=== PATIENT | female | born 1950 | race Caucasian/White ===

== ENCOUNTER → 2016-11-18 | Outpatient (REF) | payer MEDICARE ==
[~2016-11-18] MED LIST: /WARF5TA; ACET65TA; ASPI81TA83; CELE20TA; CELEXA20 PO; HCTZ25 PO; HYDR25TA6; LIPITOR20 PO; LOPR50TA; LOPRESS50 PO; PLAV75TA2; PLAVIX75 PO; SIMV20TA2
[2016-11-18 16:31] LABS: INR 1.09
== END ==
LOC: M SFHCCLAY 10:14
PROVIDERS: ATTEND Family Medicine
DX: Z51.81 Encounter for therapeutic drug level monitoring (principal); Z79.01 Long term (current) use of anticoagulants

== ENCOUNTER → 2016-11-25 | Outpatient (REF) | payer MEDICARE ==
[2016-11-25 11:16] LABS: INR 1.6
== END ==
LOC: M SFHCCLAY 07:23
PROVIDERS: ATTEND Family Medicine
DX: Z51.81 Encounter for therapeutic drug level monitoring (principal); Z79.01 Long term (current) use of anticoagulants

== ENCOUNTER → 2016-12-02 | Outpatient (REF) | payer MEDICARE ==
[2016-12-02 11:52] LABS: INR 1.66
== END ==
LOC: M SFHCCLAY 07:28
PROVIDERS: ATTEND Family Medicine
DX: Z51.81 Encounter for therapeutic drug level monitoring (principal); Z79.01 Long term (current) use of anticoagulants

== ENCOUNTER → 2016-12-09 | Outpatient (REF) | payer MEDICARE ==
[2016-12-09 11:40] LABS: INR 1.96
== END ==
LOC: M SFHCCLAY 07:29
PROVIDERS: ATTEND Family Medicine
DX: Z51.81 Encounter for therapeutic drug level monitoring (principal); Z79.01 Long term (current) use of anticoagulants

== ENCOUNTER → 2016-12-23 | Outpatient (REF) | payer MEDICARE ==
[2016-12-23 11:53] LABS: INR 1.17
== END ==
LOC: M SFHCCLAY 07:46
PROVIDERS: ATTEND Family Medicine
DX: Z79.01 Long term (current) use of anticoagulants (principal)

== ENCOUNTER → 2016-12-30 | Outpatient (REF) | payer MEDICARE ==
[2016-12-30 11:39] LABS: INR 1.64
== END ==
LOC: M SFHCCLAY 08:17
PROVIDERS: ATTEND Family Medicine
DX: Z79.01 Long term (current) use of anticoagulants (principal)

== ENCOUNTER → 2017-01-06 | Outpatient (REF) | payer MEDICARE ==
[2017-01-06 11:47] LABS: INR 2.18
== END ==
LOC: M SFHCCLAY 07:45
PROVIDERS: ATTEND Family Medicine
DX: Z79.01 Long term (current) use of anticoagulants (principal)

== ENCOUNTER → 2017-01-13 | Outpatient (REF) | payer MEDICARE ==
[2017-01-13 11:58] LABS: INR 3.73
== END ==
LOC: M SFHCCLAY 07:38
PROVIDERS: ATTEND Family Medicine
DX: Z79.01 Long term (current) use of anticoagulants (principal)

== ENCOUNTER → 2017-01-27 | Outpatient (REF) | payer MEDICARE ==
[2017-01-27 11:41] LABS: INR 2.32
== END ==
LOC: M SFHCCLAY 08:00
PROVIDERS: ATTEND Family Medicine
DX: Z79.01 Long term (current) use of anticoagulants (principal)

== ENCOUNTER → 2017-02-10 | Outpatient (REF) | payer MEDICARE ==
[2017-02-10 12:40] LABS: INR 2.25
== END ==
LOC: M SFHCCLAY 07:36
PROVIDERS: ATTEND Family Medicine
DX: Z79.01 Long term (current) use of anticoagulants (principal)

== ENCOUNTER → 2017-02-17 | Outpatient (CLI) | payer MEDICARE ==
--- NOTE | 2017-02-17 22:39 | ECHO ---
DATE OF PROCEDURE: 02/17/2017 REFERRING PHYSICIAN: Benny Bernal MD INDICATION: Atrial fibrillation. HEIGHT: 62 inches WEIGHT: 207 pounds MEASUREMENTS: Left atrium: 4.3 cm Aortic root: 3.7 cm Ventricular septum: 1.28 cm Posterior wall: 1.29 cm Left ventricle diastole: 4.2 cm Aortic valve annulus: 2.3 cm Inferior vena cava: 1.5 cm DOPPLER MEASUREMENTS: Very mild aortic regurgitation. Very mild aortic stenosis. Peak aortic valve gradient: 16 mmHg Mean aortic valve gradient: 10 mmHg Aortic valve velocity: 201 cm/s LVOT velocity: 111 cm/s LVOT VTI: 28.2 cm Very mild mitral regurgitation. No mitral stenosis. Mitral E velocity: 85.4 cm/s Mitral A velocity: 101 cm/s Mitral deceleration time: 210 ms Very mild tricuspid regurgitation. Estimated right ventricle systolic pressure 28 mmHg assuming a right atrial pressure of 5 mmHg. MITRAL ANNULAR TISSUE DOPPLER: E prime septal: 6.6 cm/s E prime lateral: 5.9 cm/s DESCRIPTION: Rhythm was sinus. This is a moderately technically difficult echocardiogram. No pericardial effusion. This is a 2D, M-mode, color flow Doppler and pulse wave Doppler examination that included mitral annular tissue Doppler. CONCLUSIONS: 1. Mild concentric left ventricle hypertrophy. No regional wall motion abnormalities of the left ventricle. Normal left ventricle (LV) systolic function. Left ventricular ejection fraction (LVEF) 65% by visual estimate. Grade 1 LV diastolic dysfunction. 2. Moderate focal thickening and focal cusp calcific deposits of a three-cuspid aortic valve. Mild reduction in cusp mobility. Very mild aortic stenosis. Very mild aortic regurgitation. 3. Moderate mitral annular calcification. No mitral stenosis. Very mild mitral regurgitation. 4. Mild left atrial dilation.
== END ==
LOC: M CARPUL 08:02
PROVIDERS: ATTEND Family Medicine
DX: I48.91 Unspecified atrial fibrillation (principal)

== ENCOUNTER → 2017-03-10 | Outpatient (REF) | payer MEDICARE ==
[2017-03-10 12:04] LABS: INR 2.78
== END ==
LOC: M SFHCCLAY 07:27
PROVIDERS: ATTEND Family Medicine
DX: Z79.01 Long term (current) use of anticoagulants (principal)

== ENCOUNTER → 2017-04-07 | Outpatient (REF) | payer MEDICARE ==
[2017-04-07 11:21] LABS: INR 1.36
== END ==
LOC: M SFHCCLAY 07:30
PROVIDERS: ATTEND Family Medicine
DX: Z79.01 Long term (current) use of anticoagulants (principal)

== ENCOUNTER → 2017-04-14 | Outpatient (REF) | payer MEDICARE ==
[2017-04-14 12:43] LABS: INR 1.79
== END ==
LOC: M SFHCCLAY 07:42
PROVIDERS: ATTEND Family Medicine
DX: Z79.01 Long term (current) use of anticoagulants (principal)

== ENCOUNTER → 2017-04-21 | Outpatient (REF) | payer MEDICARE ==
[2017-04-21 11:35] LABS: INR 2.97
== END ==
LOC: M SFHCCLAY 07:35
PROVIDERS: ATTEND Family Medicine
DX: Z79.01 Long term (current) use of anticoagulants (principal)

== ENCOUNTER → 2017-04-28 | Outpatient (REF) | payer MEDICARE ==
[2017-04-28 12:10] LABS: INR 2.99
== END ==
LOC: M SFHCCLAY 07:32
PROVIDERS: ATTEND Family Medicine
DX: Z79.01 Long term (current) use of anticoagulants (principal)

== ENCOUNTER → 2017-05-12 | Outpatient (CLI) | payer MEDICARE ==
--- NOTE | 2017-05-12 14:42 | REPMRS ---
Patient History The patient states she has not had a clinical breast exam in over a year. Digital Mammo Screening Bilat: May 12, 2017 - Exam #: [id number] Bilateral CC and MLO view(s) were taken. Technologist: Hansa Crawford, Technologist Prior study comparison: April 08, 2016, bilateral digital mammo screening bilat performed at [facility]. March 08, 2015, bilateral digital mammo screening bilat performed at [facility]. January 08, 2014, bilateral digital mammo screening bilat performed at [facility]. FINDINGS: The breast tissue is heterogeneously dense. This may lower the sensitivity of mammography. There is a moderate amount of heterogeneously dense fibroglandular tissue which is fairly symmetric. There is no interval development of dominant mass, architectural distortion, or clustered microcalcification typical of malignancy. There has been no change in the appearance of the mammogram from the prior studies. ASSESSMENT: BI-RADS/ACR category 1 mammogram. Negative. Recommendation Routine screening mammogram of both breasts in 1 year (for women over age 40). This mammogram was interpreted with the aid of an FDA-approved computer-aided dectection system. Electronically Signed By: Serge Keller MD 05/12/17 [id number]
== END ==
LOC: M RAD 13:03
PROVIDERS: ATTEND Family Medicine
DX: Z12.31 Encounter for screening mammogram for malignant neoplasm of breast (principal); Z51.81 Encounter for therapeutic drug level monitoring; Z79.01 Long term (current) use of anticoagulants
CPT/HCPCS: 85610; G0202

== ENCOUNTER → 2017-05-12 | Outpatient (REF) | payer MEDICARE ==
[2017-05-12 12:01] LABS: INR 3.45
== END ==
LOC: M SFHCCLAY 08:05
PROVIDERS: ATTEND Family Medicine
DX: Z79.01 Long term (current) use of anticoagulants (principal)

== ENCOUNTER → 2017-05-26 | Outpatient (REF) | payer MEDICARE ==
[~2017-05-26] MED LIST changes: +ACET1TAB16 PO; +ALBU17IN INH; +ASPI1TAB PO; +BISO5TAB5 PO; +CETACRE4 TOP; +CETI10TA PO; +CITA40TA4 PO; +COUM10TA PO; +COUM1TAB17 PO; +DICY10CA13 PO; +DRIS50002 PO; +HYDR2.5C54 TOP; +MONT10TA2 PO; +PLAV1TAB2 PO; +SALI0.6523; +WARF4TAB52 PO; +ZOCO40TA PO
[2017-05-26 11:49] LABS: INR 1.78
== END ==
LOC: M SFHCCLAY 07:25
PROVIDERS: ATTEND Family Medicine
DX: Z51.81 Encounter for therapeutic drug level monitoring (principal); Z79.01 Long term (current) use of anticoagulants
CPT/HCPCS: 85610; G0463

== ENCOUNTER → 2017-06-09 | Outpatient (REF) | payer MEDICARE ==
[2017-06-09 12:14] LABS: BASO # 0.2 K/mm3 (0.0-0.2); BASO % 1.9 % (0.0-1.0); EOS # 0.5 K/mm3 (0.0-0.50); EOS % 6.1 % (0.0-3.0); LARGE UNSTAINED CELL # 0.2 K/mm3 (0.0-0.4); LARGE UNSTAINED CELL % 2.3 % (0.0-4.0); LYMPH # 1.8 K/mm3 (1.5-4.5); LYMPH % 20.4 % (24.0-44.0); MEAN CORPUSCULAR HEMOGLOBIN 27.1 pg (27.0-33.0); MEAN CORPUSCULAR HGB CONC 33.6 g/dl (32.0-36.5); MEAN CORPUSCULAR VOLUME 80.5 fl (80.0-96.0); MONO # 0.5 K/mm3 (0.0-0.8); MONO % 6.6 % (0.0-5.0); NEUTROPHILS % 62.7 % (36.0-66.0); PLATELET COUNT, AUTOMATED 510 k/mm3 (150-450); RED CELL DISTRIBUTION WIDTH 15.9 % (11.5-14.5)
[2017-06-09 12:20] LABS: INR 2.24
[2017-06-09 12:30] LABS: ALKALINE PHOSPHATASE 41 U/L (45-117); ALT/SGPT 22 U/L (12-78); ANION GAP 8 MEQ/L (8-16); AST/SGOT 15 U/L (15-37); BILIRUBIN,TOTAL 0.4 MG/DL (0.2-1.0); BLOOD UREA NITROGEN 29 MG/DL (7-18); CALCIUM LEVEL 8.6 MG/DL (8.8-10.2); CARBON DIOXIDE LEVEL 24 MEQ/L (21-32); CHLORIDE LEVEL 108 MEQ/L (98-107); CHOLESTEROL LEVEL 172 MG/DL (<200); CREATININE FOR GFR 0.62 MG/DL (0.55-1.02); GLOMERULAR FILTRATION RATE > 60.0 (>45); GLUCOSE, FASTING 120 MG/DL (80-110); POTASSIUM SERUM 3.9 MEQ/L (3.5-5.1); SODIUM LEVEL 140 MEQ/L (136-145); TOTAL PROTEIN 6.5 GM/DL (6.4-8.2); TRIGLYCERIDES LEVEL 122 MG/DL (<150)
== END ==
LOC: M SFHCCLAY 07:00
PROVIDERS: ATTEND Family Medicine
DX: I48.91 Unspecified atrial fibrillation (principal); I63.40 Cerebral infarction due to embolism of unspecified cerebral artery; R10.11 Right upper quadrant pain; Z79.01 Long term (current) use of anticoagulants

== ENCOUNTER → 2017-06-15 | Outpatient (CLI) | payer MEDICARE ==
--- NOTE | 2017-06-15 11:49 | REP ---
BILIARY SCAN WITH GALLBLADDER EJECTION FRACTION: 06/15/2017 COMPARISON: Gallbladder ultrasound 08/17/2016. CLINICAL HISTORY: Right upper quadrant abdominal pain. FINDINGS: The patient received 6.3 mCi technetium 99m mebrofenin via an IV and the s Sequential 5-minute images for 1 hour anteriorly. Thereafter 8 ounces of Ensure Enlive was consumed beginning 65 minutes post tracer injection and there after 60 minutes of dynamic imaging performed with 2-minute intervals. The region of interest drawn around the gallbladder and gallbladder ejection fraction calculated by a semiautomated method. Homogeneous tracer distribution about the liver and prompt appearance of activity in the gallbladder fossa first seen at 15 minutes and the duodenum by 25 minutes and the small bowel and jejunum by 30 minutes. Good washout of activity from the liver and progressive filling of activity in the gallbladder noted. The gallbladder ejection fraction at 60 minutes is 67%. Using this method, normal gallbladder ejection fraction is greater than 35%. IMPRESSION: 1. Prompt homogeneous tracer uptake with biliary to bowel transit without obstruction and prompt appearance of activity in both the gallbladder fossa and the duodenum. Good washout from the liver. 2. Gallbladder ejection fraction 67% at 1 hour is normal. Signed by Vitor Galindo MD 06/15/2017 06:59 P
== END ==
LOC: M RAD 07:41
PROVIDERS: ATTEND Family Medicine
DX: R10.11 Right upper quadrant pain (principal)
CPT/HCPCS: 78227; A9537; J2805

== ENCOUNTER → 2017-06-23 | Outpatient (REF) | payer MEDICARE ==
[2017-06-23 12:08] LABS: INR 1.63
== END ==
LOC: M SFHCCLAY 07:20
PROVIDERS: ATTEND Family Medicine
DX: Z79.01 Long term (current) use of anticoagulants (principal)

== ENCOUNTER → 2017-06-30 | Outpatient (REF) | payer MEDICARE ==
[2017-06-30 12:04] LABS: INR 2.31
== END ==
LOC: M SFHCCLAY 07:26
PROVIDERS: ATTEND Family Medicine
DX: Z79.01 Long term (current) use of anticoagulants (principal)

== ENCOUNTER 2017-07-10 10:17 | Emergency (ER) | payer MEDICARE ==
[~2017-07-10] VITALS: Ht 157.5 cm; Wt 95.9 kg
[~2017-07-10 10:17] MED LIST changes: -ACET1TAB16 PO; -ALBU17IN INH; -ASPI1TAB PO; -BISO5TAB5 PO; -CETACRE4 TOP; -CETI10TA PO; -CITA40TA4 PO; -COUM10TA PO; -COUM1TAB17 PO; -DICY10CA13 PO; -DRIS50002 PO; -HYDR2.5C54 TOP; -MONT10TA2 PO; -PLAV1TAB2 PO; -SALI0.6523; -WARF4TAB52 PO; -ZOCO40TA PO
[2017-07-10] MEDS ORDERED: PLAV1TAB2 PO (10:30)
[2017-07-10] MEDS ORDERED: BISO5TAB5 PO (10:30)
[2017-07-10] MEDS ORDERED: DICY10CA13 PO (10:30)
[2017-07-10] MEDS ORDERED: MONT10TA2 PO (10:30)
[2017-07-10] MEDS ORDERED: CETI10TA PO (10:30)
[2017-07-10] MEDS ORDERED: ACET1TAB16 PO (10:30)
[2017-07-10] MEDS ORDERED: ALBU17IN INH (10:30)
[2017-07-10] MEDS ORDERED: PERCOCET 5MG/325MG TAB PO ONE (11:00)
--- NOTE | 2017-07-10 11:54 | REP ---
LEFT KNEE, FOUR VIEWS: HISTORY: Trauma. There is no acute fracture or dislocation. There is marked narrowing of the joint spaces. Osteophytes are present on the femur, tibia and patella. An ossified density is present adjacent to the medial tibial plateau. This represents ligamentous or tendon calcification or an old avulsion fracture fragment. A suprapatellar joint effusion is present. IMPRESSION: Degenerative change as described above. Signed by Adonis Rivas MD 07/10/2017 12:10 P
--- NOTE | 2017-07-10 12:15 | REP ---
UNILATERAL LEFT LOWER EXTREMITY DUPLEX VEINS: HISTORY: Left leg pain. There are no filling defects in the deep venous system. The deep venous system is patent. IMPRESSION: There is no deep venous thrombosis. Signed by Adonis Rivas MD 07/10/2017 12:26 P
[2017-07-10 12:59] VITALS: BP 126/70
== END 2017-07-10 13:09 | disposition home or self-care (01) ==
LOC: M ED 10:17
DX: M17.12 Unilateral primary osteoarthritis, left knee (principal); S80.02XA Contusion of left knee, initial encounter; Z87.891 Personal history of nicotine dependence; Z79.01 Long term (current) use of anticoagulants; W01.198A Fall on same level from slipping, tripping and stumbling with subsequent striking against other object, initial encounter; Y92.531 Health care provider office as the place of occurrence of the external cause; Y93.01 Activity, walking, marching and hiking; Y99.9 Unspecified external cause status

== ENCOUNTER 2017-07-14 08:01 | Inpatient (IN) | payer MEDICARE ==
[~2017-07-14] VITALS: Ht 160 cm; Wt 95.1 kg
[~2017-07-14 08:01] MED LIST changes: +ACET1TAB16 PO; +ALBU17IN INH; +BISO5TAB5 PO; +CETI10TA PO; +DICY10CA13 PO; +MONT10TA2 PO; +PLAV1TAB2 PO
[2017-07-14] MEDS ORDERED: ACETAMINOPHEN TAB 650MG DOSE (2X325MG) PO PRN (08:15)
[2017-07-14] MEDS ORDERED: ONDANSETRON 4 MG TAB (S0181) PO PRN (08:15)
[2017-07-14] MEDS ORDERED: DICYCLOMINE 10 MG CAP PO PRN (08:15)
[2017-07-14] MEDS ORDERED: ALBUTEROL SULFATE 2.5 MG/0.5 ML INH NEB SOLN NEB PRN (08:15)
--- NOTE | 2017-07-14 10:06 | REP ---
CT HEAD WITHOUT CONTRAST: HISTORY: Infarction. COMPARISON: 06/20/2016 Areas of decreased attenuation are present in the basal ganglia and internal capsules. These represent old lacunar infarctions. Areas of decreased attenuation are present in the periventricular and subcortical white matter. This represents small vessel ischemic disease. There is no intraparenchymal hemorrhage, mass, or midline shift. The ventricular system and cortical sulci as well as subarachnoid space in the posterior fossa are dilated consistent with mild volume loss. There is no extracerebral collection. The visualized sinuses are clear. IMPRESSION: 1. Old bilateral basal ganglia and internal capsule lacunar infarctions. 2. Small vessel ischemic disease. 3. Mild volume loss. Signed by Adonis Rivas MD 07/14/2017 10:20 A
--- NOTE | 2017-07-14 10:22 | HPE ---
DATE OF ADMISSION: 07/14/2017 This is an observation admission. CHIEF COMPLAINT: Leg pain. HISTORY: The patient fell on July 05. 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 She became off-balance, tripped over to the left side, fell on her left knee, left hip and thigh. She coped with this gradually for the next several days at home and then on July 11, because she was having trouble walking due to pain, she was taken to the emergency room by her spouse. X-ray of her knee was performed. No fracture identified. The patient was sent home. She has been unable to adequately ambulate and self-care has been limited. Now she presents complaining of numbness in her foot on the side. Extensive ecchymosis developed after several days following the injury. The patient has a history of a stroke, which left her with expressive aphasia, stroke presumably involving the left middle cerebral artery circulation; this occurred in 2007. Initially seen with a stroke with a sinus rhythm and placed on aspirin and Plavix. Subsequently, with repeated transient ischemic attack event , she was seen in consultation with Dr. Thompson and aspirin was stopped, Plavix continued and warfarin added. She has remained on warfarin since. Over the past year or so, she has had repeated episodes of falls related to tripping events. We do have particular concern considering her ongoing anticoagulation with dual therapy antiplatelet and anticoagulant, actually she is on triple therapy since that she is also on aspirin 81 mg daily along with clopidogrel 75 mg daily. Today she presented to the office with inability to ambulate, significant ecchymosis of the posterior and medial thigh, pain with hip motion, pain with knee motion, some bruising down the left lateral calf, inability to feel light touch over her toes and feet, although dorsalis pedis pulse is intact. The foot is warm and there is no sign of tight swelling within the compartments of the leg. There has been no other change in neurologic function, able to move the extremities without weakness and no change in cranial nerve function. Remains with difficulty with expressive language, seems to have no difficulty with receptive language. PAST MEDICAL HISTORY: Remarkable for strokes, as noted, hyperlipidemia, colonoscopy was done in 2012. ALLERGIES: She is allergic to dog dander, cats, weeds, and has a history of angioedema. She is status post hysterectomy and bilateral salpingo-oophorectomy. FAMILY HISTORY: Remarkable for colon cancer in the mother and father had hypertension and Alzheimer's disease. SOCIAL HISTORY: She is not a smoker. No alcohol use. Not known to have diabetes. Lives with her who is chronically ill with multiple medical problems but does his best to help take care of her. REVIEW OF SYSTEMS: No change in vision. No headache. No trouble swallowing. No pain with swallowing. No food getting stuck on the way down. No heartburn. No cough, dyspnea or palpitations. No abdominal pain, nausea, diarrhea or constipation. No dysuria or frequency or flank pain. EXTREMITIES: Moves all extremities but she has significant pain in the left knee, hip, thigh, and skin obviously showing significant bruising, discoloration over the proximal thigh and knee and extending onto the left lateral lower leg as well. NEUROLOGIC: The only new change is numbness of her toes that has developed since the injury. She denies back pain. Blood pressure 106/69, pulse 66 and regular, respiratory rate 18, temperature 98 degrees, oxygen saturation 100% on room air. GENERAL: Obese, white female in moderate distress related to the left knee pain. She is comfortable as long as the knee is not moved but then she has significant pain, moaning uncontrollably when we attempt to move her knee or thigh. She is alert and overall cooperative. Expressive aphasia, as noted above, unchanged. PSYCHIATRIC: Mood is neutral and appropriate for circumstance. PHYSICAL EXAMINATION Vitals: 108/69 BP, 66 HR, 98T, 18 RR, 100%O2sat on RA General: Alert, cooperative, in no distress at rest but significant pain with left leg movement. HEENT: Normocephalic, atraumatic. Pupils equal round reactive. Full extraocular movements. No icterus. No oropharyngeal lesions. She has a polypoid bulge in the left buccal mucosa, apparently this is a chronic finding, not ulcerated, nontender and soft. Otherwise, oropharynx unremarkable. No neck mass. No carotid bruits are noted. Trachea is midline. LUNGS: Regular. She has a deep inspiration without wheezing, rales or rhonchi. HEART: Regular rate and rhythm. She has 2/6 systolic murmur at the base. ABDOMEN: Obese, nontender. No organ enlargement. No rebound. Bowel sounds active. EXTREMITIES: Obese,abundant fat distribution on her thighs. She has extensive bruising over the posterior aspect of her distal thigh no necrosis of tissue. There is no definite palpable hematoma. She has bruising over the medial thigh as well. She has some bruising, less intense coloring over the lower left leg. Function of the knee triggers pain. There is no palpable deformity of the knee, however, dorsalis pedis pulses are intact bilaterally, but she has no light touch from the ankle down on the foot on the left side. There is no skin bruising or breakdown on her feet and foot is warm. There is no significant taut swelling of the lower extremities, just minor bruising on the lower extremity below the knee. She has some bruising on the left lower lateral leg. Laboratory data, EKG and other imaging are pending. ASSESSMENT: 1. Fall, repeated falls. History of stroke. Significant bruising and in pain with attempted movement of the left hip and knee. X-ray of her knee done at [facility] on 07/11/2017 was negative, but imaging was limited to the knee alone. 2. History of stroke. 3. Aortic sclerosis. 4. History of depression. 5. Long-term use of anticoagulants. 6. Expressive Aphasia. PLAN: The patient is admitted to the hospital. Laboratory and CT imaging of brain because of the recent fall while on anticoagulant is ordered. Physical therapy (PT) and occupational therapy (OT) consultation. We will admit her as an observation patient. The rounding attending will be made aware of the patient's transit to hospital. She is admitted as direct admission to [address] [place] [address]
[2017-07-14] MEDS ORDERED: DICY10CA13 PO (10:29)
[2017-07-14] MEDS ORDERED: PLAV1TAB2 PO (10:29)
[2017-07-14] MEDS ORDERED: COUM10TA PO (10:29)
[2017-07-14] MEDS ORDERED: ALBU17IN INH (10:29)
[2017-07-14] MEDS ORDERED: COUM1TAB17 PO (10:29)
[2017-07-14] MEDS ORDERED: MONT10TA2 PO (10:29)
[2017-07-14] MEDS ORDERED: ASPI1TAB PO (10:29)
[2017-07-14] MEDS ORDERED: BISO5TAB5 PO (10:29)
[2017-07-14] MEDS ORDERED: ACET1TAB16 PO (10:29)
[2017-07-14] MEDS ORDERED: CITA40TA4 PO (10:29)
[2017-07-14] MEDS ORDERED: ZOCO40TA PO (10:29)
[2017-07-14] MEDS ORDERED: CETI10TA PO (10:29)
[2017-07-14] MEDS ORDERED: HYDR2.5C54 TOP (10:32)
[2017-07-14] MEDS ORDERED: SALI0.6523 (10:32)
[2017-07-14] MEDS ORDERED: DRIS50002 PO (10:32)
[2017-07-14] MEDS ORDERED: CETACRE4 TOP (10:32)
[2017-07-14 10:40] LABS: BASO # 0.1 K/mm3 (0.0-0.2); BASO % 0.7 % (0.0-1.0); EOS # 0.2 K/mm3 (0.0-0.50); EOS % 2.1 % (0.0-3.0); LARGE UNSTAINED CELL # 0.2 K/mm3 (0.0-0.4); LARGE UNSTAINED CELL % 1.8 % (0.0-4.0); LYMPH # 1.9 K/mm3 (1.5-4.5); LYMPH % 14.4 % (24.0-44.0); MEAN CORPUSCULAR HEMOGLOBIN 26.8 pg (27.0-33.0); MEAN CORPUSCULAR VOLUME 81.2 fl (80.0-96.0); MONO # 0.7 K/mm3 (0.0-0.8); MONO % 5.7 % (0.0-5.0); NEUTROPHILS # 8.8 K/mm3 (1.8-7.7); NEUTROPHILS % 75.3 % (36.0-66.0); PLATELET COUNT, AUTOMATED 685 k/mm3 (150-450); RED CELL DISTRIBUTION WIDTH 15.1 % (11.5-14.5); WHITE BLOOD COUNT 11.7 K/mm3 (4.0-10.0)
[2017-07-14 10:43] LABS: INR 2.21
[2017-07-14 10:58] LABS: ALBUMIN 3.7 GM/DL (3.2-5.2); ALBUMIN/GLOBULIN RATIO 1.23 (1.00-1.93); ALKALINE PHOSPHATASE 69 U/L (45-117); ALT/SGPT 33 U/L (12-78); ANION GAP 11 MEQ/L (8-16); AST/SGOT 30 U/L (15-37); BILIRUBIN,TOTAL 1.3 MG/DL (0.2-1.0); BLOOD UREA NITROGEN 28 MG/DL (7-18); CALCIUM LEVEL 8.8 MG/DL (8.8-10.2); CARBON DIOXIDE LEVEL 24 MEQ/L (21-32); CHLORIDE LEVEL 109 MEQ/L (98-107); CREATININE FOR GFR 0.63 MG/DL (0.55-1.02); GLOMERULAR FILTRATION RATE > 60.0 (>45); GLUCOSE, FASTING 119 MG/DL (80-110); MAGNESIUM LEVEL 2.1 MG/DL (1.8-2.4); POTASSIUM SERUM 3.8 MEQ/L (3.5-5.1); SODIUM LEVEL 144 MEQ/L (136-145); TOTAL PROTEIN 6.7 GM/DL (6.4-8.2)
[2017-07-14] MEDS: MORPHINE 2 MG/ML 1ML SYRINGE IV PRN (11:57)
--- NOTE | 2017-07-14 12:41 | IPN ---
DATE: 07/14/2017 Neha has been admitted by Dr. Bernal. We discussed the case. He handed over her care. Lab work is coming back. She has acute anemia secondary to acute blood loss. Her hemoglobin has dropped from 14.7 to 10. Her international normalized ratio (INR) is therapeutic. At this point, we are not going to hold her warfarin. We will see if her hemoglobin stabilizes. If she continues to have bleeding with drop of her hemoglobin, we will have to stop and reverse the warfarin.
--- NOTE | 2017-07-14 12:45 | REP ---
Chest two views HISTORY: Fall Comparison: 02/26/2015 The lungs are clear. The cardiac silhouette is enlarged. The pulmonary vasculature is normal in appearance. The bony structure is intact. IMPRESSION: Cardiomegaly. Signed by Adonis Rivas MD 07/14/2017 12:38 P
--- NOTE | 2017-07-14 13:12 | REP ---
PELVIS, ONE VIEW: HISTORY: Fall. There is no acute fracture or dislocation. There is minimal narrowing of the hip joint spaces. IMPRESSION: Degenerative change as described above. Signed by Adonis Rivas MD 07/14/2017 01:42 P
--- NOTE | 2017-07-14 13:16 | REP ---
LEFT FEMUR, FOUR VIEWS: HISTORY: Fall. There is no acute fracture or dislocation. There is narrowing of the hip and knee joint spaces. Calcification is present medial to the knee joint space. This represents ligamentous or tendon calcification. IMPRESSION: There is no acute fracture or dislocation. Signed by Adonis Rivas MD 07/14/2017 01:43 P
--- NOTE | 2017-07-14 13:26 | REP ---
LEFT KNEE, FOUR VIEWS: HISTORY: Fall. There is no acute fracture or dislocation. There is narrowing of the joint spaces. Sclerosis is present at the medial knee joint space. Osteophytes are present on the tibia, fibula and patella. Calcifications are present medial to the joint space. This represents ligamentous or tendon calcification. IMPRESSION: Degenerative change as described above. Signed by Adonis Rivas MD 07/14/2017 01:43 P
[2017-07-14] MEDS: WARFARIN SOD 3 MG TAB PO SCH (16:16)
[2017-07-14] MEDS: PERCOCET 5MG/325MG TAB PO PRN ×2 (16:16→20:20)
[2017-07-14 18:20] LABS: MEAN CORPUSCULAR HEMOGLOBIN 27.4 pg (27.0-33.0); MEAN CORPUSCULAR HGB CONC 33.3 g/dl (32.0-36.5); MEAN CORPUSCULAR VOLUME 82.3 fl (80.0-96.0); RED CELL DISTRIBUTION WIDTH 15.2 % (11.5-14.5); WHITE BLOOD COUNT 12.4 K/mm3 (4.0-10.0)
[2017-07-14] MEDS: SIMVASTATIN 40 MG TAB PO SCH (20:20)
[2017-07-14] MEDS: MONTELUKAST 10 MG TAB PO SCH (20:20)
[2017-07-14 22:00] VITALS: BP 132/61
--- NOTE | 2017-07-14 23:28 | ECGEPIP ---
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 Electronically Signed On 07-14-2017 23:27:34 EDT by Kobe Walsh
[2017-07-15 06:00] VITALS: BP 156/88
[2017-07-15] MEDS: PERCOCET 5MG/325MG TAB PO PRN ×3 (06:15→21:32)
[2017-07-15 06:46] LABS: MEAN CORPUSCULAR HEMOGLOBIN 27.4 pg (27.0-33.0); MEAN CORPUSCULAR HGB CONC 33.6 g/dl (32.0-36.5); MEAN CORPUSCULAR VOLUME 81.5 fl (80.0-96.0); RED CELL DISTRIBUTION WIDTH 15.1 % (11.5-14.5)
[2017-07-15 06:52] LABS: INR 2.45
[2017-07-15 06:59] LABS: ANION GAP 9 MEQ/L (8-16); BLOOD UREA NITROGEN 25 MG/DL (7-18); CALCIUM LEVEL 8.6 MG/DL (8.8-10.2); CARBON DIOXIDE LEVEL 27 MEQ/L (21-32); CHLORIDE LEVEL 109 MEQ/L (98-107); CREATININE FOR GFR 0.53 MG/DL (0.55-1.02); GLOMERULAR FILTRATION RATE > 60.0 (>45); GLUCOSE, FASTING 128 MG/DL (80-110); POTASSIUM SERUM 3.7 MEQ/L (3.5-5.1); SODIUM LEVEL 145 MEQ/L (136-145)
--- NOTE | 2017-07-15 07:49 | IPNPDOC ---
Subjective Date Seen The patient was seen on 07/15/17. Subjective Chief Complaint/HPI The patient is a 67-year-old female admitted with a reason for visit of Unable To Ambulate, Uncontrolled Pain. Events since last encounter No new issues or concerns. Left leg pain persists Constitutional: Denies: Chills, Fever Pulmonary: Denies: Dyspnea, Cough Cardiovascular: Denies: Chest Pain, Palpitations, Orthopnea Gastrointestinal: Denies: Nausea, Vomiting, Abdominal Pain, Diarrhea, Constipation Musculoskeletal: Reports: Leg Pain (left leg pain) Objective Physical Examination General Exam: Positive: Alert, No Acute Distress Chest Exam: Positive: Clear to auscultation Heart Exam: Positive: Rate Normal, Regular Rhythm Abdomen Exam: Positive: Normal bowel sounds, Soft, Negative: Tenderness Extremity Exam: Positive: Other (eccymosis extending from lateral left hip to knee and medial thigh. Slight swelling. Tender. No erythema) Assessment /Plan Problems (1) Inability to ambulate due to knee Status: Acute Response to Treatment: Improving Problem Text: continue PT/OT x-rays reviewed - no acute fracture (2) Acute blood loss anemia Status: Acute Response to Treatment: Stable Problem Text: Hgb dropped secondary to large amount of ecchymosis on leg after fall in patient on Coumadin Hgb is stable today REstart Coumadin (3) H/O: CVA (cerebrovascular accident) Status: Chronic Response to Treatment: Stable Problem Text: Restart Coumadin and Plavix Continue Zocor (4) Contusion of left knee Status: Acute Problem Text: Continue PErcocet for pain (5) Expressive aphasia Status: Chronic Response to Treatment: Stable (6) Frequent falls Status: Chronic Plan/VTE VTE Prophylaxis Ordered?: Yes (Coumadin) Plan Therapy: PT, OT (PFS involved with dispo planning) VS, I&O, 24H, Fishbone Vital Signs/I&O Vital Signs Date Time Temp Pulse Resp B/P (MAP) Pulse Ox O2 Delivery O2 Flow Rate FiO2 07/15/17 06:45 18 07/15/17 06:00 98.0 77 156/88 (110) 97 Room Air I&O- Last 24 Hours up to 6 AM 07/15/17 06:00 Intake Total 900 ml Output Total 250 ml Balance 650 ml Laboratory Data 24H LABS Laboratory Tests 2 07/14/17 09:54: White Blood Count 11.7H, Red Blood Count 3.73L, Hemoglobin 10.0L, Hematocrit 30.3L, Mean Corpuscular Volume 81.2, Mean Corpuscular Hemoglobin 26.8L, Mean Corpuscular Hemoglobin Concent 33.0, Red Cell Distribution Width 15.1H, Platelet Count 685H, Neutrophils (%) (Auto) 75.3H, Lymphocytes (%) (Auto) 14.4L , Monocytes (%) (Auto) 5.7H, Eosinophils (%) (Auto) 2.1, Basophils (%) (Auto) 0.7, Neutrophils # (Auto) 8.8H, Lymphocytes # (Auto) 1.9, Monocytes # (Auto) 0.7 , Eosinophils # (Auto) 0.2, Basophils # (Auto) 0.1, Large Unclassified Cells % 1.8, Large Unclassified Cells # 0.2, Prothrombin Time 25.3H, Prothromb Time International Ratio 2.21, Anion Gap 11, Glomerular Filtration Rate > 60.0, Blood Urea Nitrogen 28H, Creatinine 0.63, Sodium Level 144, Potassium Level 3.8 , Chloride Level 109H, Carbon Dioxide Level 24, Calcium Level 8.8, Aspartate Amino Transf (AST/SGOT) 30, Alanine Aminotransferase (ALT/SGPT) 33, Alkaline Phosphatase 69, Total Bilirubin 1.3H, Total Protein 6.7, Albumin 3.7, Magnesium Level 2.1, Albumin/Globulin Ratio 1.23, Thyroid Stimulating Hormone (TSH) 1.610 07/15/17 06:03: Prothrombin Time 27.6H, Prothromb Time International Ratio 2.45, Anion Gap 9, Glomerular Filtration Rate > 60.0, Blood Urea Nitrogen 25H, Creatinine 0.53L, Sodium Level 145, Potassium Level 3.7, Chloride Level 109H, Carbon Dioxide Level 27, Calcium Level 8.6L CBC/BMP Laboratory Tests 07/14/17 09:54 Red Blood Count 3.73 L, Mean Corpuscular Volume 81.2, Mean Corpuscular Hemoglobin 26.8 L, Mean Corpuscular Hemoglobin Concent 33.0, Red Cell Distribution Width 15.1 H, Neutrophils (%) (Auto) 75.3 H, Lymphocytes (%) (Auto ) 14.4 L, Monocytes (%) (Auto) 5.7 H, Eosinophils (%) (Auto) 2.1, Basophils (%) (Auto) 0.7, Neutrophils # (Auto) 8.8 H, Lymphocytes # (Auto) 1.9, Monocytes # ( Auto) 0.7, Eosinophils # (Auto) 0.2, Basophils # (Auto) 0.1, Calcium Level 8.8, Aspartate Amino Transf (AST/SGOT) 30, Alanine Aminotransferase (ALT/SGPT) 33, Alkaline Phosphatase 69, Total Bilirubin 1.3 H, Total Protein 6.7, Albumin 3.7 07/14/17 17:52 Red Blood Count 3.54 L, Mean Corpuscular Volume 82.3, Mean Corpuscular Hemoglobin 27.4, Mean Corpuscular Hemoglobin Concent 33.3, Red Cell Distribution Width 15.2 H 07/15/17 06:03 Red Blood Count 3.63 L, Mean Corpuscular Volume 81.5, Mean Corpuscular Hemoglobin 27.4, Mean Corpuscular Hemoglobin Concent 33.6, Red Cell Distribution Width 15.1 H, Calcium Level 8.6 L SHANNAN SCHAFER PA-C Jul 15, 2017 07:49
[2017-07-15] MEDS: CETIRIZINE (ZyrTEC) 10 MG TAB PO SCH (08:56)
[2017-07-15] MEDS: CitaloPRAM (CeleXA) 20 MG TAB PO SCH (08:56)
[2017-07-15] MEDS: BISOPROLOL FUMARATE 5 MG TAB PO SCH (08:57)
[2017-07-15] MEDS: CLOPIDOGREL 75 MG TAB PO SCH (08:57)
[2017-07-15 14:00] VITALS: BP 131/68
[2017-07-15] MEDS: WARFARIN SOD 3 MG TAB PO SCH (16:06)
[2017-07-15] MEDS: SIMVASTATIN 40 MG TAB PO SCH (21:31)
[2017-07-15] MEDS: MONTELUKAST 10 MG TAB PO SCH (21:31)
[2017-07-15 22:00] VITALS: BP 129/60
[2017-07-16] MEDS: PERCOCET 5MG/325MG TAB PO PRN ×2 (05:19→11:32)
[2017-07-16 06:00] VITALS: BP 138/82
[2017-07-16 06:52] LABS: MEAN CORPUSCULAR HEMOGLOBIN 27.8 pg (27.0-33.0); MEAN CORPUSCULAR HGB CONC 33.8 g/dl (32.0-36.5); MEAN CORPUSCULAR VOLUME 82.1 fl (80.0-96.0); RED CELL DISTRIBUTION WIDTH 15.3 % (11.5-14.5); WHITE BLOOD COUNT 10.3 K/mm3 (4.0-10.0)
[2017-07-16 06:59] LABS: INR 2.82
[2017-07-16 07:12] LABS: ANION GAP 7 MEQ/L (8-16); BLOOD UREA NITROGEN 23 MG/DL (7-18); CALCIUM LEVEL 8.5 MG/DL (8.8-10.2); CARBON DIOXIDE LEVEL 27 MEQ/L (21-32); CHLORIDE LEVEL 109 MEQ/L (98-107); CREATININE FOR GFR 0.46 MG/DL (0.55-1.02); GLOMERULAR FILTRATION RATE > 60.0 (>45); GLUCOSE, FASTING 120 MG/DL (80-110); POTASSIUM SERUM 3.9 MEQ/L (3.5-5.1); SODIUM LEVEL 143 MEQ/L (136-145)
[2017-07-16] MEDS: CitaloPRAM (CeleXA) 20 MG TAB PO SCH (09:29)
[2017-07-16] MEDS: CLOPIDOGREL 75 MG TAB PO SCH (09:29)
[2017-07-16] MEDS: CETIRIZINE (ZyrTEC) 10 MG TAB PO SCH (09:29)
[2017-07-16] MEDS: BISOPROLOL FUMARATE 5 MG TAB PO SCH (09:29)
--- NOTE | 2017-07-16 13:14 | IPNPDOC ---
Subjective Date Seen The patient was seen on 07/16/17. Subjective Chief Complaint/HPI The patient is a 67-year-old female admitted with a reason for visit of Unable To Ambulate, Uncontrolled Pain. Events since last encounter Still with pain in left leg - difficult to bear weight Constitutional: Denies: Chills, Fever Pulmonary: Denies: Dyspnea, Cough Cardiovascular: Denies: Chest Pain, Palpitations, Orthopnea Gastrointestinal: Denies: Nausea, Vomiting, Abdominal Pain, Diarrhea, Constipation Objective Physical Examination General Exam: Positive: Alert, No Acute Distress Chest Exam: Positive: Clear to auscultation Heart Exam: Positive: Rate Normal, Regular Rhythm Abdomen Exam: Positive: Normal bowel sounds, Soft, Negative: Tenderness Extremity Exam: Positive: Other (eccymosis extending from lateral left hip to knee and medial thigh. Slight swelling. Tender. No erythema. Left knee and hip with normal ROM - able to move this independently without significnat pain. ) Assessment /Plan Problems (1) Inability to ambulate due to knee Status: Acute Response to Treatment: Improving Problem Text: Pain seem clearly to be related to the bruised area which is extensive, but not in joint. Moves left knee and hip independently without significant pain but very tender over eccymostic area. I don't think any further imaging is needed. Continue pain meds. PT to assess ability to ambulate and consider d/c home if felt safe. continue PT/OT x-rays reviewed - no acute fracture (2) Acute blood loss anemia Status: Acute Response to Treatment: Stable Problem Text: Hgb dropped secondary to large amount of ecchymosis on leg after fall in patient on Coumadin Hgb is stable today REstart Coumadin (3) H/O: CVA (cerebrovascular accident) Status: Chronic Response to Treatment: Stable Problem Text: Restart Coumadin and Plavix Continue Zocor (4) Contusion of left knee Status: Acute Problem Text: Continue PErcocet for pain (5) Expressive aphasia Status: Chronic Response to Treatment: Stable (6) Frequent falls Status: Chronic Plan/VTE VTE Prophylaxis Ordered?: Yes (Coumadin) Plan Therapy: PT, OT (PFS involved with dispo planning) VS, I&O, 24H, Fishbone Vital Signs/I&O Vital Signs Date Time Temp Pulse Resp B/P (MAP) Pulse Ox O2 Delivery O2 Flow Rate FiO2 07/16/17 09:29 97 138/82 07/16/17 06:00 98.0 18 92 Room Air I&O- Last 24 Hours up to 6 AM 07/16/17 05:59 Intake Total 60 ml Output Total 300 ml Balance -240 ml Laboratory Data 24H LABS Laboratory Tests 2 07/16/17 06:26: Prothrombin Time 30.9H, Prothromb Time International Ratio 2.82, Anion Gap 7L, Glomerular Filtration Rate > 60.0, Blood Urea Nitrogen 23H, Creatinine 0.46L, Sodium Level 143, Potassium Level 3.9, Chloride Level 109H, Carbon Dioxide Level 27, Calcium Level 8.5L CBC/BMP Laboratory Tests 07/16/17 06:26 Red Blood Count 3.50 L, Mean Corpuscular Volume 82.1, Mean Corpuscular Hemoglobin 27.8, Mean Corpuscular Hemoglobin Concent 33.8, Red Cell Distribution Width 15.3 H, Calcium Level 8.5 L SHANNAN SCHAFER PA-C Jul 16, 2017 13:14
[2017-07-16 14:00] VITALS: BP 136/86
[2017-07-16] MEDS: WARFARIN SOD 3 MG TAB PO SCH (18:18)
[2017-07-16] MEDS: SIMVASTATIN 40 MG TAB PO SCH (20:08)
[2017-07-16] MEDS: MONTELUKAST 10 MG TAB PO SCH (20:08)
--- NOTE | 2017-07-16 20:21 | REP ---
Left ankle series: Four views. History: Pain in the lateral malleolus. Findings: Ankle mortise is intact. There is some mild tibiotalar spurring. There is large Achilles and plantar calcaneal spurring. Clothing artifact is seen over the midfoot and forefoot. Impression: Osteoarthritis of the ankle. Heel spurs. No acute bony abnormality. Signed by Kleber Keller MD 07/20/2017 08:19 A
[2017-07-16 22:00] VITALS: BP 138/72
[2017-07-17] MEDS: PERCOCET 5MG/325MG TAB PO PRN ×4 (05:11→21:05)
[2017-07-17 06:00] VITALS: BP 145/80
[2017-07-17 06:53] LABS: MEAN CORPUSCULAR HEMOGLOBIN 27.2 pg (27.0-33.0); MEAN CORPUSCULAR HGB CONC 33.4 g/dl (32.0-36.5); MEAN CORPUSCULAR VOLUME 81.5 fl (80.0-96.0); RED CELL DISTRIBUTION WIDTH 15.6 % (11.5-14.5); WHITE BLOOD COUNT 11.4 K/mm3 (4.0-10.0)
[2017-07-17 07:00] LABS: INR 2.91
[2017-07-17 07:40] LABS: ANION GAP 8 MEQ/L (8-16); BLOOD UREA NITROGEN 22 MG/DL (7-18); CALCIUM LEVEL 8.2 MG/DL (8.8-10.2); CARBON DIOXIDE LEVEL 26 MEQ/L (21-32); CHLORIDE LEVEL 110 MEQ/L (98-107); CREATININE FOR GFR 0.52 MG/DL (0.55-1.02); GLOMERULAR FILTRATION RATE > 60.0 (>45); GLUCOSE, FASTING 126 MG/DL (80-110); POTASSIUM SERUM 3.9 MEQ/L (3.5-5.1); SODIUM LEVEL 144 MEQ/L (136-145)
[2017-07-17] MEDS: CLOPIDOGREL 75 MG TAB PO SCH (09:06)
[2017-07-17] MEDS: CETIRIZINE (ZyrTEC) 10 MG TAB PO SCH (09:07)
[2017-07-17] MEDS: CitaloPRAM (CeleXA) 20 MG TAB PO SCH (09:07)
[2017-07-17] MEDS: BISOPROLOL FUMARATE 5 MG TAB PO SCH (09:07)
[2017-07-17 14:00] VITALS: BP 114/62
[2017-07-17] MEDS: WARFARIN SOD 4 MG TAB PO SCH (17:11)
--- NOTE | 2017-07-17 18:09 | IPNPDOC ---
Subjective Date Seen The patient was seen on 07/17/17. Subjective Chief Complaint/HPI The patient is a 67-year-old female admitted with a reason for visit of Unable To Ambulate, Uncontrolled Pain. Events since last encounter She reports that her left thigh just proximal to the knee is still quite sore. She does feel that some of that previous hematoma is starting to resolve. She reports she is working well with physical therapy, to try to get stronger. General: Reports: Normal Appetite Constitutional: Denies: Fever Pulmonary: Denies: Cough Cardiovascular: Denies: Chest Pain, Palpitations Psych: Reports: Mood Normal Objective Physical Examination General Exam: Positive: Alert, No Acute Distress Eye Exam: Positive: Conjunctiva & lids normal, Negative: Sclera icteric ENT Exam: Positive: Mucous membr. moist/pink Neck Exam: Negative: Lymphadenopathy Chest Exam: Positive: Clear to auscultation Heart Exam: Positive: Rate Normal, Regular Rhythm Abdomen Exam: Positive: Normal bowel sounds, Soft, Negative: Tenderness Extremity Exam: Positive: Other (eccymosis extending from lateral left hip to knee and medial thigh, mostly encircles the thigh. There is a significant amount of bilixanthin noted at the peripheries of the ecchymotic area. Slight swelling. Tender to palpation. No erythema. Left knee and hip with reasonably normal ROM.) Psych Exam: Positive: Mood NL, Oriented x 3 Assessment /Plan Problems (1) Inability to ambulate due to knee Status: Acute Response to Treatment: Improving Problem Text: Pain seem clearly to be related to the bruised area which is extensive, but not in joint. Moves left knee and hip independently without significant pain but very tender over eccymostic area. I don't think any further imaging is needed. Continue pain meds. PT to assess ability to ambulate and consider d/c home if felt safe. continue PT/OT x-rays reviewed - no acute fracture (2) Acute blood loss anemia Status: Acute Response to Treatment: Stable Problem Text: Hgb dropped secondary to large amount of ecchymosis on leg after fall in patient on Coumadin Hgb is stable today REstart Coumadin (3) H/O: CVA (cerebrovascular accident) Status: Chronic Response to Treatment: Stable Problem Text: Restart Coumadin and Plavix Continue Zocor (4) Contusion of left knee Status: Acute Problem Text: Continue PErcocet for pain (5) Expressive aphasia Status: Chronic Response to Treatment: Stable (6) Frequent falls Status: Chronic Plan/VTE VTE Prophylaxis Ordered?: Yes (Coumadin) Plan Therapy: PT, OT (PFS involved with dispo planning) VS, I&O, 24H, Fishbone Vital Signs/I&O Vital Signs Date Time Temp Pulse Resp B/P (MAP) Pulse Ox O2 Delivery O2 Flow Rate FiO2 07/17/17 17:11 18 07/17/17 14:00 97.6 88 114/62 (79) 97 Room Air I&O- Last 24 Hours up to 6 AM 07/17/17 05:59 Intake Total 1200 ml Output Total 1050 ml Balance 150 ml Laboratory Data 24H LABS Laboratory Tests 2 07/17/17 06:15: Anion Gap 8, Glomerular Filtration Rate > 60.0, Blood Urea Nitrogen 22H, Creatinine 0.52L, Sodium Level 144, Potassium Level 3.9, Chloride Level 110H, Carbon Dioxide Level 26, Calcium Level 8.2L 07/17/17 06:16: Prothrombin Time 31.7H, Prothromb Time International Ratio 2.91 CBC/BMP Laboratory Tests 07/17/17 06:15 Red Blood Count 3.46 L, Mean Corpuscular Volume 81.5, Mean Corpuscular Hemoglobin 27.2, Mean Corpuscular Hemoglobin Concent 33.4, Red Cell Distribution Width 15.6 H, Calcium Level 8.2 L Daljit Contreras MD Jul 17, 2017 18:09
[2017-07-17] MEDS: MONTELUKAST 10 MG TAB PO SCH (21:04)
[2017-07-17] MEDS: SIMVASTATIN 40 MG TAB PO SCH (21:05)
[2017-07-17 22:00] VITALS: BP 128/69
[2017-07-18] MEDS: PERCOCET 5MG/325MG TAB PO PRN ×4 (01:17→20:18)
[2017-07-18 06:00] VITALS: BP 139/78
[2017-07-18 07:06] LABS: INR 3.12
[2017-07-18 07:11] LABS: ANION GAP 8 MEQ/L (8-16); BLOOD UREA NITROGEN 20 MG/DL (7-18); CALCIUM LEVEL 8.1 MG/DL (8.8-10.2); CARBON DIOXIDE LEVEL 26 MEQ/L (21-32); CHLORIDE LEVEL 108 MEQ/L (98-107); CREATININE FOR GFR 0.44 MG/DL (0.55-1.02); GLOMERULAR FILTRATION RATE > 60.0 (>45); GLUCOSE, FASTING 112 MG/DL (80-110); MEAN CORPUSCULAR HEMOGLOBIN 27.2 pg (27.0-33.0); MEAN CORPUSCULAR HGB CONC 32.9 g/dl (32.0-36.5); MEAN CORPUSCULAR VOLUME 82.7 fl (80.0-96.0); POTASSIUM SERUM 3.9 MEQ/L (3.5-5.1); RED CELL DISTRIBUTION WIDTH 15.7 % (11.5-14.5); SODIUM LEVEL 142 MEQ/L (136-145); WHITE BLOOD COUNT 10.5 K/mm3 (4.0-10.0)
[2017-07-18] MEDS: MORPHINE 2 MG/ML 1ML SYRINGE IV PRN (08:39)
[2017-07-18] MEDS: BISOPROLOL FUMARATE 5 MG TAB PO SCH (08:40)
[2017-07-18] MEDS: CitaloPRAM (CeleXA) 20 MG TAB PO SCH (08:40)
[2017-07-18] MEDS: CLOPIDOGREL 75 MG TAB PO SCH (08:41)
[2017-07-18] MEDS: CETIRIZINE (ZyrTEC) 10 MG TAB PO SCH (08:41)
[2017-07-18 14:00] VITALS: BP 135/73
[2017-07-18] MEDS: WARFARIN SOD 4 MG TAB PO SCH (17:30)
[2017-07-18] MEDS: SIMVASTATIN 40 MG TAB PO SCH (20:18)
[2017-07-18] MEDS: MONTELUKAST 10 MG TAB PO SCH (20:18)
[2017-07-18 22:00] VITALS: BP 132/67
[2017-07-19 06:00] VITALS: BP 150/76
[2017-07-19 07:10] LABS: MEAN CORPUSCULAR HEMOGLOBIN 27.4 pg (27.0-33.0); MEAN CORPUSCULAR HGB CONC 33.4 g/dl (32.0-36.5); MEAN CORPUSCULAR VOLUME 82.2 fl (80.0-96.0); RED CELL DISTRIBUTION WIDTH 15.8 % (11.5-14.5); WHITE BLOOD COUNT 8.8 K/mm3 (4.0-10.0)
[2017-07-19 07:16] LABS: INR 2.98
[2017-07-19 07:29] LABS: ANION GAP 8 MEQ/L (8-16); BLOOD UREA NITROGEN 16 MG/DL (7-18); CALCIUM LEVEL 7.6 MG/DL (8.8-10.2); CARBON DIOXIDE LEVEL 27 MEQ/L (21-32); CHLORIDE LEVEL 106 MEQ/L (98-107); GLOMERULAR FILTRATION RATE > 60.0 (>45); GLUCOSE, FASTING 114 MG/DL (80-110); POTASSIUM SERUM 3.9 MEQ/L (3.5-5.1); SODIUM LEVEL 141 MEQ/L (136-145)
[2017-07-19] MEDS: CLOPIDOGREL 75 MG TAB PO SCH (08:07)
[2017-07-19] MEDS: PERCOCET 5MG/325MG TAB PO PRN ×3 (08:08→19:44)
[2017-07-19] MEDS: BISOPROLOL FUMARATE 5 MG TAB PO SCH (08:08)
[2017-07-19] MEDS: CETIRIZINE (ZyrTEC) 10 MG TAB PO SCH (08:09)
[2017-07-19] MEDS: CitaloPRAM (CeleXA) 20 MG TAB PO SCH (08:09)
[2017-07-19 14:00] VITALS: BP 110/68
--- NOTE | 2017-07-19 16:58 | IPNPDOC ---
Subjective Date Seen The patient was seen on 07/19/17. Subjective Chief Complaint/HPI The patient is a 67-year-old female admitted with a reason for visit of Unable To Ambulate, Uncontrolled Pain. Objective Physical Examination General Exam: Positive: Alert, No Acute Distress Chest Exam: Positive: Clear to auscultation Heart Exam: Positive: Rate Normal, Regular Rhythm Abdomen Exam: Positive: Normal bowel sounds, Soft, Negative: Tenderness Extremity Exam: Positive: Other (eccymosis extending from lateral left hip to knee and medial thigh. Slight swelling. Tender. No erythema. Left knee and hip with normal ROM - able to move this independently without significnat pain. ) Assessment /Plan Problems (1) Inability to ambulate due to knee Status: Acute Response to Treatment: Improving Problem Text: Pain seem clearly to be related to the bruised area which is extensive, but not in joint. Moves left knee and hip independently without significant pain but very tender over eccymostic area. I don't think any further imaging is needed. Continue pain meds. PT to assess ability to ambulate and consider d/c home if felt safe. continue PT/OT x-rays reviewed - no acute fracture (2) Acute blood loss anemia Status: Acute Response to Treatment: Stable Problem Text: Hgb dropped secondary to large amount of ecchymosis on leg after fall in patient on Coumadin Hgb is stable today REstart Coumadin (3) H/O: CVA (cerebrovascular accident) Status: Chronic Response to Treatment: Stable Problem Text: Restart Coumadin and Plavix Continue Zocor (4) Contusion of left knee Status: Acute Problem Text: Continue PErcocet for pain (5) Expressive aphasia Status: Chronic Response to Treatment: Stable (6) Frequent falls Status: Chronic Plan/VTE VTE Prophylaxis Ordered?: Yes (Coumadin) Plan Therapy: PT, OT (PFS involved with dispo planning) VS, I&O, 24H, Fishbone Vital Signs/I&O Vital Signs Date Time Temp Pulse Resp B/P (MAP) Pulse Ox O2 Delivery O2 Flow Rate FiO2 07/19/17 08:38 18 07/19/17 08:08 67 150/76 07/19/17 06:00 97.5 96 Room Air I&O- Last 24 Hours up to 6 AM 07/19/17 06:00 Intake Total 1465 ml Output Total 925 ml Balance 540 ml Laboratory Data 24H LABS Laboratory Tests 2 07/19/17 06:38: Prothrombin Time 32.3H, Prothromb Time International Ratio 2.98, Anion Gap 8, Glomerular Filtration Rate > 60.0, Blood Urea Nitrogen 16, Creatinine 0.50L, Sodium Level 141, Potassium Level 3.9, Chloride Level 106, Carbon Dioxide Level 27, Calcium Level 7.6L CBC/BMP Laboratory Tests 07/19/17 06:38 Red Blood Count 3.53 L, Mean Corpuscular Volume 82.2, Mean Corpuscular Hemoglobin 27.4, Mean Corpuscular Hemoglobin Concent 33.4, Red Cell Distribution Width 15.8 H, Calcium Level 7.6 L Benny Bernal MD Jul 19, 2017 16:58
[2017-07-19] MEDS: MONTELUKAST 10 MG TAB PO SCH (19:44)
[2017-07-19] MEDS: SIMVASTATIN 40 MG TAB PO SCH (19:45)
[2017-07-19 22:00] VITALS: BP 154/81
[2017-07-20 06:00] VITALS: BP 167/76
[2017-07-20 07:42] LABS: MEAN CORPUSCULAR HEMOGLOBIN 27.8 pg (27.0-33.0); MEAN CORPUSCULAR HGB CONC 33.5 g/dl (32.0-36.5); RED CELL DISTRIBUTION WIDTH 15.6 % (11.5-14.5); WHITE BLOOD COUNT 8.3 K/mm3 (4.0-10.0)
[2017-07-20 07:43] LABS: INR 2.52
[2017-07-20 07:50] LABS: ANION GAP 8 MEQ/L (8-16); BLOOD UREA NITROGEN 15 MG/DL (7-18); CALCIUM LEVEL 8.6 MG/DL (8.8-10.2); CARBON DIOXIDE LEVEL 27 MEQ/L (21-32); CHLORIDE LEVEL 105 MEQ/L (98-107); GLOMERULAR FILTRATION RATE > 60.0 (>45); GLUCOSE, FASTING 115 MG/DL (80-110); POTASSIUM SERUM 4.5 MEQ/L (3.5-5.1); SODIUM LEVEL 140 MEQ/L (136-145)
[2017-07-20] MEDS: CETIRIZINE (ZyrTEC) 10 MG TAB PO SCH (10:22)
[2017-07-20] MEDS: CitaloPRAM (CeleXA) 20 MG TAB PO SCH (10:22)
[2017-07-20] MEDS: CLOPIDOGREL 75 MG TAB PO SCH (10:22)
[2017-07-20] MEDS: PERCOCET 5MG/325MG TAB PO PRN (10:22)
[2017-07-20 10:23] VITALS: BP 167/76
[2017-07-20] MEDS: BISOPROLOL FUMARATE 5 MG TAB PO SCH (10:23)
--- NOTE | 2017-07-20 13:20 | IPNPDOC ---
Subjective Date Seen The patient was seen on 07/20/17. Subjective Chief Complaint/HPI The patient is a 67-year-old female admitted with a reason for visit of Unable To Ambulate, Uncontrolled Pain. Objective Physical Examination General Exam: Positive: Alert, No Acute Distress Chest Exam: Positive: Clear to auscultation Heart Exam: Positive: Rate Normal, Regular Rhythm Abdomen Exam: Positive: Normal bowel sounds, Soft, Negative: Tenderness Extremity Exam: Positive: Other (eccymosis extending from lateral left hip to knee and medial thigh. Slight swelling. Tender. No erythema. Left knee and hip with normal ROM - able to move this independently without significnat pain. ) Assessment /Plan Problems (1) Inability to ambulate due to knee Status: Acute Response to Treatment: Improving Problem Text: Pain seem clearly to be related to the bruised area which is extensive, but not in joint. Moves left knee and hip independently without significant pain but very tender over eccymostic area. I don't think any further imaging is needed. Continue pain meds. PT to assess ability to ambulate and consider d/c home if felt safe. continue PT/OT x-rays reviewed - no acute fracture (2) Acute blood loss anemia Status: Acute Response to Treatment: Stable Problem Text: Hgb dropped secondary to large amount of ecchymosis on leg after fall in patient on Coumadin Hgb is stable today REstart Coumadin (3) H/O: CVA (cerebrovascular accident) Status: Chronic Response to Treatment: Stable Problem Text: Restart Coumadin and Plavix Continue Zocor (4) Contusion of left knee Status: Acute Problem Text: Continue PErcocet for pain (5) Expressive aphasia Status: Chronic Response to Treatment: Stable (6) Frequent falls Status: Chronic Plan/VTE VTE Prophylaxis Ordered?: Yes (Coumadin) Plan Therapy: PT, OT (PFS involved with dispo planning) VS, I&O, 24H, Fishbone Vital Signs/I&O Vital Signs Date Time Temp Pulse Resp B/P (MAP) Pulse Ox O2 Delivery O2 Flow Rate FiO2 07/20/17 11:14 18 07/20/17 10:23 82 167/76 07/20/17 10:00 Room Air 07/20/17 06:00 98.3 95 I&O- Last 24 Hours up to 6 AM 07/20/17 06:00 Intake Total 1320 ml Output Total 2075 ml Balance -755 ml Laboratory Data 24H LABS Laboratory Tests 2 07/20/17 06:32: Prothrombin Time 28.2H, Prothromb Time International Ratio 2.52, Anion Gap 8, Glomerular Filtration Rate > 60.0, Blood Urea Nitrogen 15, Creatinine 0.50L, Sodium Level 140, Potassium Level 4.5, Chloride Level 105, Carbon Dioxide Level 27, Calcium Level 8.6L CBC/BMP Laboratory Tests 07/20/17 06:32 Red Blood Count 3.86 L, Mean Corpuscular Volume 83.0, Mean Corpuscular Hemoglobin 27.8, Mean Corpuscular Hemoglobin Concent 33.5, Red Cell Distribution Width 15.6 H, Calcium Level 8.6 L Daljit Contreras MD Jul 20, 2017 13:20
[2017-07-20] MEDS ORDERED: WARF4TAB52 PO (13:59)
--- NOTE | 2017-07-20 15:08 | DS.PDOC ---
Discharge Summary General Date of Admission Jul 16, 2017 at 17:35 Date of Discharge 07/20/2017 Primary Care Physician: Benny Bernal MD Attending Physician: Daljit Contreras MD Discharge Summary ADMITTING DIAGNOSES: 1. Repeated falls. 2. History of stroke. 3. Aortic sclerosis. 4. History of depression 5. Expressive aphasia 6. Anticoagulation with warfarin DISCHARGE DIAGNOSES: 1. Status post fall with large left thigh hematoma. 2. Acute blood loss anemia. 3. History of cerebrovascular accident. 4. Stress of aphasia 5. Anticoagulation with warfarin ADMISSION HISTORY: The patient was admitted to the hospital for difficulty walking approximately 1 week after a fall. Significant left thigh hematoma developed in the time between her fall and her presentation to the hospital. Please see the admission history and physical for the remaining details. HOSPITAL COURSE: His low was admitted to the hospital for difficulty with ambulation. After sustaining a mechanical fall about one week prior to admission. In the interim she developed a significant left thigh hematoma. This is probably, in part, because she is anticoagulated with warfarin. Warfarin was continued while here but we did monitor her blood counts carefully. Her hemoglobin initially fell, but then slowly began to rise. She actually became slightly supratherapeutic (3.19) while she was here. Her warfarin dose was reduced back to 6 mg per day by the time of discharge. She received physical therapy while she was here to help improve her mobility. On the day of discharge she was informed by [facility] that her admission was denied by her insurance company. She was hoping to go to acute or short-term rehabilitation after this hospitalization. Unfortunately neither of those aren't option anymore because she does not have an acute stay which is a prerequisite for admission to either these types of rehabilitation. He is in this her options are home or retirement. She and her consider these options for short period bit for deciding they wished to go home and to be discharged today so they did not get charged more. I was concerned she may be able to pass her home safety evaluation, but she did and I subsequently discharged her to home. I offered them physical therapy through home health agency, but she prefers to resume outpatient P/T. I gave her prescription to assist her in resuming her outpatient therapy. DISCHARGE CONDITION: Stable. FOLLOW-UP: An appointment was scheduled with Dr. Bernal on 07/22/17 at 10:30 prior to discharge. DIET: Low-fat low-cholesterol. ACTIVITY: As tolerated and per physical therapy. DISCHARGE MEDICATIONS: Please see below. ALLERGIES: Please see below. LABORATORY DATA: Please see below. IMAGING: X-rays of her chest, pelvis, femur, knee, and ankle were done. There was a noncontrast CT of her head performed while she was in the ER. DISCHARGE INSTRUCTIONS: 1. Attending physical therapy appointment. 2. Take 6 mg warfarin until instructed differently by the clinic. Vital Signs/I&Os Vital Signs Date Time Temp Pulse Resp B/P (MAP) Pulse Ox O2 Delivery O2 Flow Rate FiO2 07/20/17 11:14 18 07/20/17 10:23 82 167/76 07/20/17 10:00 Room Air 07/20/17 06:00 98.3 95 I&O- Last 24 Hours up to 6 AM 07/20/17 06:00 Intake Total 1320 ml Output Total 2075 ml Balance -755 ml Laboratory Data Labs 24H Laboratory Tests 2 07/20/17 06:32: Prothrombin Time 28.2H, Prothromb Time International Ratio 2.52, Anion Gap 8, Glomerular Filtration Rate > 60.0, Blood Urea Nitrogen 15, Creatinine 0.50L, Sodium Level 140, Potassium Level 4.5, Chloride Level 105, Carbon Dioxide Level 27, Calcium Level 8.6L CBC/BMP Laboratory Tests 07/20/17 06:32 Red Blood Count 3.86 L, Mean Corpuscular Volume 83.0, Mean Corpuscular Hemoglobin 27.8, Mean Corpuscular Hemoglobin Concent 33.5, Red Cell Distribution Width 15.6 H, Calcium Level 8.6 L Discharge Medications Scheduled (Cetaphil) 1 Cre Cre, 1 CRE TOP DAILY, (Reported) APPLIES TO WHOLE BODY Aspirin (Aspirin 81) 81 Mg Tab, 81 MG PO DAILY, (Reported) Bisoprolol Fumarate (Bisoprolol Fumarate) 5 Mg Tab, 5 MG PO DAILY, (Reported) Cetirizine HCl (Cetirizine HCl) 10 Mg Tab, 10 MG PO DAILY, (Reported) Citalopram Hydrobromide (Citalopram Hydrobromide) 40 Mg Tab, 40 MG PO DAILY, ( Reported) Clopidogrel Bisulfate (Plavix) 75 Mg Tab, 75 MG PO DAILY, (Reported) Dicyclomine HCl (Dicyclomine HCl) 10 Mg Cap, 20 M PO BID, (Reported) Montelukast Sodium (Montelukast Sodium) 10 Mg Tab, 10 MG PO QHS, (Reported) Simvastatin - High Dose (Zocor) 40 Mg Tab, 40 MG PO QHS, (Reported) Vitamin D (Drisdol) 50,000 Unit Cap, 50,000 UNIT PO QWEEK, (Reported) MONDAYS Warfarin Sod (Coumadin) 5 Mg Tab, 5 MG PO 1XWK, (Reported) WEDNESDAY Warfarin Sod (Coumadin) 10 Mg Tab, 10 MG PO 6XWK, (Reported) WED,,,WED,SAT,SUN Warfarin Sod (Warfarin Sodium) 1 Mg Tab, 1 MG PO DAILY Scheduled PRN (Saline Nasal [place]) 0.65 % Spr, 1 SPRAY NA for NASAL DRYNESS, (Reported) Acetaminophen/Codeine (Acetaminophen/Codeine 300-30 mg) 1 Tab Tab, 1 TAB PO Q6H PRN for PAIN, (Reported) MDD = 4 Albuterol Sulfate (Ventolin Hfa) 200 Puff/8 Gm Aers, 2 PUFF INH QID PRN for SHORTNESS OF BREATH, (Reported) Hydrocortisone Base (Hydrocortisone) 2.5 % Cre, 1 DOSE TOP DAILY PRN for ITCHING , (Reported) APPLIES TO VAGINAL AREA Allergies Coded Allergies: SEASONAL ALLERGIES (Unverified Allergy, Intermediate, SNEEZING ECT., ) Animal Dander (Unverified Allergy, Unknown, 07/14/17) No Known Drug Allergy (Verified Allergy, Unknown, 07/10/17) Daljit Contreras MD Jul 20, 2017 3:08 pm
[2017-07-21] MEDS ORDERED: WARFARIN SOD 3 MG TAB PO SCH (17:00)
== END 2017-07-20 15:20 | disposition home or self-care (01) | DRG 605 ==
LOC: PREINTOOBSV 08:39 → M MS5PR 08:54 → OBSVTOIN 07-16 17:35 → INTOOBSV 07-16 17:35
PROVIDERS: ADMIT Family Medicine; ATTEND Family Medicine
DX: S70.12XA Contusion of left thigh, initial encounter (principal); D62 Acute posthemorrhagic anemia; I69.920 Aphasia following unspecified cerebrovascular disease; R29.6 Repeated falls; M25.552 Pain in left hip; M25.562 Pain in left knee; Z79.01 Long term (current) use of anticoagulants; W18.30XA Fall on same level, unspecified, initial encounter; Y92.009 Unspecified place in unspecified non-institutional (private) residence as the place of occurrence of the external cause; Z79.82 Long term (current) use of aspirin; Z79.899 Other long term (current) drug therapy; F32.9 Major depressive disorder, single episode, unspecified; I35.0 Nonrheumatic aortic (valve) stenosis

== ENCOUNTER → 2017-07-29 | Outpatient (CLI) | payer MEDICARE ==
[~2017-07-29] MED LIST changes: +ASPI1TAB PO; +CETACRE4 TOP; +CITA40TA4 PO; +COUM10TA PO; +COUM1TAB17 PO; +DRIS50002 PO; +HYDR2.5C54 TOP; +SALI0.6523; +WARF4TAB52 PO; +ZOCO40TA PO
--- NOTE | 2017-07-29 15:33 | REP ---
Left tib-fib series: Two views. History: Contusion left thigh. Lower leg pain, 2 weeks after fall. Findings: Two views of the left knee demonstrate no evidence of acute fracture or subluxation. There is large fragmented spurring at the medial compartment of the left knee. Moderate osteophyte formation is seen in the lateral compartment and some spurring and narrowing are seen in the patellofemoral compartment of the knee. Impression: No acute fracture. Fairly advanced three compartment left knee osteoarthritis.
== END ==
LOC: M CLY 14:16
PROVIDERS: ATTEND Family Medicine
DX: S70.12XD Contusion of left thigh, subsequent encounter (principal); X58.XXXD Exposure to other specified factors, subsequent encounter; Y93.9 Activity, unspecified; Y92.9 Unspecified place or not applicable; Y99.8 Other external cause status; M17.12 Unilateral primary osteoarthritis, left knee; Z51.81 Encounter for therapeutic drug level monitoring; Z79.01 Long term (current) use of anticoagulants
CPT/HCPCS: 73590; 85610; G0463

== ENCOUNTER → 2017-08-05 | Outpatient (REF) | payer MEDICARE ==
[2017-08-05 12:40] LABS: INR 2.11
== END ==
LOC: M SFHCCLAY 07:16
PROVIDERS: ATTEND Family Medicine
DX: Z79.01 Long term (current) use of anticoagulants (principal)

== ENCOUNTER → 2017-08-12 | Outpatient (CLI) | payer MEDICARE ==
--- NOTE | 2017-08-12 11:15 | REP ---
CT of the left ankle and foot: Axial images are acquired helical scanning and a reformatted sagittal and coronal projections: Ankle: There is no tibiotalar joint space narrowing, cortical eburnation or erosion or subcortical cyst formation. The tibiotalar articulation is unremarkable. The fibulotalar articulation is unremarkable. The subtalar articulation is unremarkable. Mineralization is normal. There are no calcifications. No fracture or dislocation. Impression: Essentially negative CT of the left ankle. CT of the left foot: The talonavicular articulation is unremarkable. The subtalar articulation is unremarkable. The sustentaculum is unremarkable. Mineralization is normal. There are no calcifications. The tarsal articulations are unremarkable. The tarsometatarsal articulations are unremarkable. The metatarsal phalangeal articulations are unremarkable. The PIP and DIP articulations are unremarkable. Mineralization is normal. There are calcaneal plantar and Achilles spurs. There is no fracture or dislocation. There are no calcifications or foreign bodies. Impression: Calcaneal spurs. Otherwise, essentially negative CT of the foot. Signed by Andrea Batista MD 08/12/2017 11:06 A
== END ==
LOC: M RAD 09:04
PROVIDERS: ATTEND Orthopaedic Surgery
DX: M25.572 Pain in left ankle and joints of left foot (principal); M77.32 Calcaneal spur, left foot

== ENCOUNTER → 2017-08-19 | Outpatient (REF) | payer MEDICARE ==
[2017-08-19 13:02] LABS: INR 2.06
== END ==
LOC: M SFHCCLAY 07:29
PROVIDERS: ATTEND Family Medicine
DX: Z79.01 Long term (current) use of anticoagulants (principal)

== ENCOUNTER → 2017-09-29 | Outpatient (REF) | payer MEDICARE ==
[2017-09-29 12:20] LABS: INR 1.89
== END ==
LOC: M SFHCCLAY 07:28
PROVIDERS: ATTEND Family Medicine
DX: Z51.81 Encounter for therapeutic drug level monitoring (principal); Z79.01 Long term (current) use of anticoagulants

== ENCOUNTER → 2017-10-06 | Outpatient (REF) | payer MEDICARE ==
[2017-10-06 12:13] LABS: INR 2.53
== END ==
LOC: M SFHCCLAY 07:17
PROVIDERS: ATTEND Family Medicine
DX: Z79.01 Long term (current) use of anticoagulants (principal)

== ENCOUNTER → 2017-10-20 | Outpatient (REF) | payer MEDICARE ==
[2017-10-20 11:56] LABS: INR 3.22
== END ==
LOC: M SFHCCLAY 07:35
PROVIDERS: ATTEND Family Medicine
DX: Z79.01 Long term (current) use of anticoagulants (principal)

== ENCOUNTER → 2017-11-03 | Outpatient (REF) | payer MEDICARE ==
[2017-11-03 11:49] LABS: INR 2.42
== END ==
LOC: M SFHCCLAY 07:24
PROVIDERS: ATTEND Family Medicine
DX: Z79.01 Long term (current) use of anticoagulants (principal)

== ENCOUNTER → 2017-11-17 | Outpatient (REF) | payer MEDICARE ==
[2017-11-17 11:56] LABS: INR 2.63; PROTHROMBIN TIME 29.2 SECONDS (12.4-14.5)
== END ==
LOC: M SFHCCLAY 07:19
DX: Z51.81 Encounter for therapeutic drug level monitoring (principal); Z79.01 Long term (current) use of anticoagulants
CPT/HCPCS: 85610

== ENCOUNTER → 2017-12-08 | Outpatient (REF) | payer MEDICARE ==
[2017-12-08 13:34] LABS: INR 1.94; PROTHROMBIN TIME 22.8 SECONDS (12.4-14.5)
== END ==
LOC: M SFHCCLAY 07:22
DX: Z79.01 Long term (current) use of anticoagulants (principal)
CPT/HCPCS: 85610

== ENCOUNTER → 2017-12-22 | Outpatient (REF) | payer MEDICARE ==
[2017-12-22 12:33] LABS: INR 1.95; PROTHROMBIN TIME 22.8 SECONDS (12.4-14.5)
== END ==
LOC: M SFHCCLAY 07:32
DX: Z79.01 Long term (current) use of anticoagulants (principal)
CPT/HCPCS: 85610

== ENCOUNTER → 2018-01-05 | Outpatient (REF) | payer MEDICARE ==
[2018-01-05 11:35] LABS: INR 1.81; PROTHROMBIN TIME 21.6 SECONDS (12.4-14.5)
== END ==
LOC: M SFHCCLAY 07:32
DX: Z51.81 Encounter for therapeutic drug level monitoring (principal); Z79.01 Long term (current) use of anticoagulants
CPT/HCPCS: 85610

== ENCOUNTER → 2018-01-19 | Outpatient (REF) | payer MEDICARE ==
[2018-01-19 12:45] LABS: INR 2.27; PROTHROMBIN TIME 25.9 SECONDS (12.4-14.5)
== END ==
LOC: M SFHCCLAY 07:31
DX: Z79.01 Long term (current) use of anticoagulants (principal)
CPT/HCPCS: 85610

== ENCOUNTER → 2018-02-02 | Outpatient (REF) | payer MEDICARE ==
[2018-02-02 11:38] LABS: INR 1.31; PROTHROMBIN TIME 16.6 SECONDS (12.4-14.5)
== END ==
LOC: M SFHCCLAY 07:36
DX: Z51.81 Encounter for therapeutic drug level monitoring (principal); Z79.01 Long term (current) use of anticoagulants
CPT/HCPCS: 85610

== ENCOUNTER → 2018-02-08 | Outpatient (REF) | payer MEDICARE ==
[2018-02-08 18:01] LABS: ANION GAP 7 MEQ/L (8-16); BLOOD UREA NITROGEN 24 MG/DL (7-18); CALCIUM LEVEL 8.7 MG/DL (8.8-10.2); CARBON DIOXIDE LEVEL 27 MEQ/L (21-32); CHLORIDE LEVEL 109 MEQ/L (98-107); CREATININE FOR GFR 0.64 MG/DL (0.55-1.30); GLOMERULAR FILTRATION RATE > 60.0 (>45); GLUCOSE, FASTING 102 MG/DL (70-100); POTASSIUM SERUM 4.3 MEQ/L (3.5-5.1); SODIUM LEVEL 143 MEQ/L (136-145)
[2018-02-08 18:02] LABS: HEMATOCRIT 44.2 % (36.0-47.0); HEMOGLOBIN 14.3 g/dl (12.0-16.0); MEAN CORPUSCULAR HEMOGLOBIN 26.6 pg (27.0-33.0); MEAN CORPUSCULAR HGB CONC 32.4 g/dl (32.0-36.5); MEAN CORPUSCULAR VOLUME 82.2 fl (80.0-96.0); PLATELET COUNT, AUTOMATED 610 10^3/uL (150-450); RED BLOOD COUNT 5.38 10^6/uL (4.00-5.40); RED CELL DISTRIBUTION WIDTH 16.5 % (11.5-14.5); WHITE BLOOD COUNT 9.9 10^3/uL (4.0-10.0)
== END ==
LOC: M SFHCCLAY 16:14
DX: R19.5 Other fecal abnormalities (principal); Z51.81 Encounter for therapeutic drug level monitoring; Z79.01 Long term (current) use of anticoagulants; I48.91 Unspecified atrial fibrillation
CPT/HCPCS: 80048

== ENCOUNTER → 2018-02-09 | Outpatient (REF) | payer MEDICARE ==
[2018-02-09 11:42] LABS: INR 2.08; PROTHROMBIN TIME 24.1 SECONDS (12.4-14.5)
== END ==
LOC: M SFHCCLAY 07:21
DX: Z79.01 Long term (current) use of anticoagulants (principal)
CPT/HCPCS: 85610

== ENCOUNTER → 2018-02-24 | Day surgery (SDC) | payer MEDICARE ==
[~2018-02-24] MED LIST changes: -/WARF5TA; -ACET1TAB16 PO; -ACET65TA; -ALBU17IN INH; -ASPI1TAB PO; -ASPI81TA83; -BISO5TAB5 PO; -CELE20TA; -CELEXA20 PO; -CETACRE4 TOP; -CETI10TA PO; -CITA40TA4 PO; -COUM10TA PO; -COUM1TAB17 PO; -DICY10CA13 PO; -DRIS50002 PO; +GLYCOPYRROLATE INJ 0.2 MG/ML 2 ML VIAL As Ordered; -HCTZ25 PO; -HYDR2.5C54 TOP; -HYDR25TA6; +LIDOCAINE 1% MDV 20ML VIAL As Ordered; -LIPITOR20 PO; -LOPR50TA; -LOPRESS50 PO; -MONT10TA2 PO; -PLAV1TAB2 PO; -PLAV75TA2; -PLAVIX75 PO; +PROPOFOL 200 MG/20 ML VIAL As Ordered; -SALI0.6523; -SIMV20TA2; -WARF4TAB52 PO; -ZOCO40TA PO
[2018-02-24] MEDS: NS 1,000 ML IV (10:00)
== END | disposition home or self-care (01) ==
LOC: M OPP 09:49
DX: D64.9 Anemia, unspecified (principal); R19.5 Other fecal abnormalities; D12.3 Benign neoplasm of transverse colon; D12.5 Benign neoplasm of sigmoid colon; K64.8 Other hemorrhoids; K57.30 Diverticulosis of large intestine without perforation or abscess without bleeding; K29.70 Gastritis, unspecified, without bleeding; E78.5 Hyperlipidemia, unspecified; K21.9 Gastro-esophageal reflux disease without esophagitis; R06.02 Shortness of breath; M19.90 Unspecified osteoarthritis, unspecified site; I63.9 Cerebral infarction, unspecified; I69.320 Aphasia following cerebral infarction; J45.909 Unspecified asthma, uncomplicated; R06.83 Snoring; Z79.02 Long term (current) use of antithrombotics/antiplatelets; Z79.01 Long term (current) use of anticoagulants; Z79.899 Other long term (current) drug therapy; Z80.0 Family history of malignant neoplasm of digestive organs
CPT/HCPCS: 45385

== ENCOUNTER 2018-02-25 13:48 | Emergency (ER) | payer MEDICARE ==
[2018-02-25 14:46] LABS: BASO # 0.2 10^3/uL (0.0-0.2); BASO % 1.2 % (0.0-1.0); EOS # 0.2 10^3/uL (0.0-0.50); EOS % 1.4 % (0.0-3.0); HEMATOCRIT 44.7 % (36.0-47.0); HEMOGLOBIN 14.9 g/dl (12.0-15.5); IMMATURE GRANULOCYTE % 0.3 % (0-3.0); LYMPH # 1.5 10^3/uL (1.5-4.5); LYMPH % 11.4 % (24.0-44.0); MEAN CORPUSCULAR HEMOGLOBIN 27.1 pg (27.0-33.0); MEAN CORPUSCULAR HGB CONC 33.3 g/dl (32.0-36.5); MEAN CORPUSCULAR VOLUME 81.3 fl (80.0-96.0); MONO # 1.4 10^3/uL (0.0-0.8); MONO % 10.7 % (0.0-5.0); NEUTROPHILS # 9.9 10^3/uL (1.8-7.7); PLATELET COUNT, AUTOMATED 555 10^3/uL (150-450); RED CELL DISTRIBUTION WIDTH 15.6 % (11.5-14.5); WHITE BLOOD COUNT 13.2 10^3/uL (4.0-10.0)
[2018-02-25] MEDS: ALTEPLASE 100MG INJ (J2997) IV ×2 (15:00)
[2018-02-25] MEDS ORDERED: ALTEPLASE 100MG INJ (J2997) As Ordered ×2 (15:09)
[2018-02-25 15:13] LABS: INR 1.07; PROTHROMBIN TIME 14.1 SECONDS (12.4-14.5)
[2018-02-25 15:14] LABS: PARTIAL THROMBOPLASTIN TIME 28.6 SECONDS (26.8-37.9)
[2018-02-25] MEDS: ALTEPLASE RECOMBINANT IV (15:30)
[2018-02-25] MEDS: DILUENT IV (15:30)
[2018-02-25 15:39] LABS: ANION GAP 5 MEQ/L (8-16); BLOOD UREA NITROGEN 17 MG/DL (7-18); CALCIUM LEVEL 8.8 MG/DL (8.8-10.2); CARBON DIOXIDE LEVEL 28 MEQ/L (21-32); CHLORIDE LEVEL 107 MEQ/L (98-107); CPK CREATINE PHOSPHOKINASE 54 U/L (26-192); CREATININE FOR GFR 0.79 MG/DL (0.55-1.30); GLOMERULAR FILTRATION RATE > 60.0 (>45); GLUCOSE, FASTING 108 MG/DL (70-100); POTASSIUM SERUM 3.6 MEQ/L (3.5-5.1); SODIUM LEVEL 140 MEQ/L (136-145); TROPONIN I < 0.02 NG/ML (< 0.10)
[2018-02-25 15:40] LABS: CK-MB VALUE MASS < 1.0 NG/ML (<3.6); MB/CK RELATIVE INDEX 1.85 (< OR =4)
== END 2018-02-25 15:45 | disposition short-term general hospital (02) ==
LOC: M ED 13:48
DX: I63.9 Cerebral infarction, unspecified (principal); I10 Essential (primary) hypertension; E78.9 Disorder of lipoprotein metabolism, unspecified; J45.909 Unspecified asthma, uncomplicated; F32.9 Major depressive disorder, single episode, unspecified; Z86.73 Personal history of transient ischemic attack (TIA), and cerebral infarction without residual deficits; Z79.899 Other long term (current) drug therapy; Z79.01 Long term (current) use of anticoagulants; Z79.02 Long term (current) use of antithrombotics/antiplatelets
CPT/HCPCS: J2997